=== PATIENT | male | born 1975 | race Caucasian/White ===

== ENCOUNTER 2022-01-06 07:38 | Day surgery (SDC) | payer BC, SELFPAY ==
[2022-01-05 09:54] VITALS: BMI 38.7
[2022-01-06 08:10] VITALS: BP 155/105; PULSE 77; RESP 18; TEMP 36.3; O2SAT 99
[2022-01-06] MEDS: sodium chloride 0.9% 1,000 ML 30 ML IV (08:16)
--- NOTE | 2022-01-06 08:53 | ANES.PREANE2 ---
Pre-Anesthetic Assessment Height/Weight: Height 1.78 m Weight 122.47 kg Temp Pulse Resp BP Pulse Ox 97.3 F L 77 18 155/105 99 01/06/22 08:10 01/06/22 08:10 01/06/22 08:10 01/06/22 08:10 01/06/22 08:10 Operation Date: 01/06/22 09:15 Proposed Procedures p Colonoscopy 33747/screening Z12.11(Not Applicable) - Alfred Iraheta MD Familial anesthetic complications: None Was Beta Sejal taken within 24 hours: N/A Was Clonidine taken within 24 hours: N/A Last intake: Intake Last Liquid Date 01/05/22 Last Liquid Time 12:00 Last Solid Date 01/04/22 Social No alcohol and No tobacco Exam alert, oriented x 3, clear to auscultation bilaterally and regular rate & rhythm Airway Submandibular: within normal limits Cervical ROM: within normal limits Mallampati: Class II Dentition: full CV/HEM Hypertension Metabolic Morbid Obesity Anesthetic Plan ASA status: 2 Anesthesia: MAC Medications/Allergies Home Medications Medication Instructions Recorded Confirmed Last Taken Type lisinopril 40 mg tablet 40 mg PO DAILY 01/05/22 01/06/22 01/04/22 History Allergies Allergy/AdvReac Type Severity Reaction Status Date / Time No Known Allergies Allergy Verified 01/06/22 08:11 Current Medications Generic Name Dose Route Start Last Admin Trade Name Freq PRN Reason Stop Dose Admin Sodium Chloride 1,000 mls @ 30 mls/hr 01/06/22 08:15 01/06/22 08:16 Sodium Chloride 0.9% IV 01/07/22 08:14 30 mls/hr .Q24H HUGO Administration PFSH Anesthesia Family History (Updated 01/05/22 @ 10:17 by An Stanley) Mother Thyroid cancer Brother Parkinson disease Sister Autoimmune disorder Data Anesthesia Cardiac Studies: No Data to Display
--- NOTE | 2022-01-06 09:39 | W.PM.OPSUD ---
Surgery/Procedure H&P Update DATE OF PROCEDURE: January 06, 2022 DATE H&P PERFORMED: 12/09/21 CHANGES TO PREVIOUS DOCUMENTATION: None PRIMARY INDICATION FOR PROCEDURE: Screening, average risk PLANNED PROCEDURE: Operation Date: 01/06/22 09:15 Proposed Procedures p Colonoscopy 90781/screening Z12.11(Not Applicable) - Alfred Iraheta MD Related Problem List Diagnoses (1) Colon cancer screening: We once again discussed the risks of bleeding, perforation, and sedation. The patient has no further questions and wishes to proceed
[2022-01-06 10:02] VITALS: BP 126/90; PULSE 85; RESP 16; TEMP 36.3; O2SAT 96
[2022-01-06 10:14] VITALS: BP 128/81; PULSE 79; RESP 18; O2SAT 97
--- NOTE | 2022-01-06 11:31 | ANE.PACU2 ---
Inpatient post-anesthesia follow up: Airway intact: Yes Vital signs: Temperature 97.3 F Pulse Rate 79 Respiratory Rate 18 Blood Pressure 128/81 Pulse Oximetry 97 Oxygen Delivery Me thod Room Air Oxygen Flow Rate Fraction of Inspir ed Oxygen Hydration adequate: Yes Nausea and vomiting: No Pain level: 1 Mental status: Baseline
== END 2022-01-06 10:38 | disposition home or self-care (01) ==
PROVIDERS: Family Provider Family Medicine; PCP Family Medicine; Visit Provider Family Medicine
PROC: 0DJD8ZZ Inspection of Lower Intestinal Tract, Via Natural or Artificial Opening Endoscopic (ICD-10-PCS; CPT 45378; principal; 2022-01-06 09:15)
DX: Z12.11 Encounter for screening for malignant neoplasm of colon (principal); I10 Essential (primary) hypertension; E66.01 Morbid (severe) obesity due to excess calories; Z68.38 Body mass index [BMI] 38.0-38.9, adult
CPT/HCPCS: 12345; 45378; J2704; J7030